=== PATIENT | male | born 1965 | race African-American/Black ===

== ENCOUNTER 2020-10-05 12:18 | Outpatient (CLI) | payer OTHER | END 2020-10-05 12:19 | disposition home or self-care (01) | LOC: SCSMRI 12:18 | PROVIDERS: ATTEND Orthopaedic Surgery | DX: M23.92 Unspecified internal derangement of left knee (principal); S83.242A Other tear of medial meniscus, current injury, left knee, initial encounter ==

== ENCOUNTER 2020-11-16 08:57 | Outpatient (CLI) | payer OTHER ==
[2020-11-16 10:42] LABS: #Eosinphils 0.2 10x3/uL (0.0-0.5); #Monocytes 0.7 10x3/uL (0.0-1.1); #Neutrophils 3.6 10x3/uL (1.5-8.4); %Basophils 0.4 % (0.0-2.0); %Eosinophils 2.4 % (0.0-6.0); %Lymphocytes 32.7 % (18.0-47.0); %Monocytes 9.7 % (0.0-10.0); %Neutrophils 54.7 % (40.0-75.0); Mean Corpuscular HGB CONC 33.7 g/dL (32.0-36.0); Mean Corpuscular Hemoglobin 29.4 pg (27.0-33.0); Mean Corpuscular Volume 87.3 fl (81.2-95.1); Mean Platelet Volume 12.8 fl (7.4-10.4); Platelet Count 180 10x3/uL (150-450); RBC Distribution Width 12.4 % (11.5-14.5); White Blood Cell (WBC) Count 6.7 10x3/uL (3.5-10.5)
[2020-11-16 11:09] LABS: Anion Gap 14 mmol/L (10-20); BUN (Urea Nitrogen) 16 mg/dL (8.4-25.7); Calc. Creatinine Clearance 0 mL/min (70-130); Calcium 9.5 mg/dL (7.8-10.44); Carbon Dioxide 24 mmol/L (22-29); Chloride 106 mmol/L (98-107); Glucose 105 mg/dL (70-105); Potassium 4.1 mmol/L (3.5-5.1); Sodium 140 mmol/L (136-145)
[2020-11-16 19:39] LABS: SARS-CoV-2 PCR by NAA Not Detected (NotDetected)
== END 2020-11-16 08:58 | disposition home or self-care (01) ==
LOC: LABBT 08:57
PROVIDERS: ATTEND Orthopaedic Surgery
DX: Z01.818 Encounter for other preprocedural examination (principal); S83.242A Other tear of medial meniscus, current injury, left knee, initial encounter; Z20.822 Contact with and (suspected) exposure to COVID-19
CPT/HCPCS: 71046; 80048; 85025; 93005; 93010; U0003; U0005

== ENCOUNTER 2020-11-21 07:03 | Day surgery (SDC) | payer OTHER ==
[2020-11-20 11:57] VITALS: BMI 35.2
[2020-11-21] MEDS ORDERED: Bupivacaine 0.25% HCL 30 ML VIAL ONE (07:47)
[2020-11-21] MEDS ORDERED: EPINEPHrine 1 MG/ML AMP ONE (07:47)
[2020-11-21] MEDS ORDERED: Fentanyl 100 MCG/2 ML VIAL ONE ×2 (08:24→08:38)
[2020-11-21] MEDS ORDERED: Midazolam HCl 2 mg/2 ml Vial ONE (08:24)
[2020-11-21] MEDS ORDERED: PROPOFOL 200 MG/20 ML VIAL ONE (08:39)
[2020-11-21] MEDS ORDERED: Lidocaine 2% w/Epinephrine 1:200K 20 ML VIAL ONE (08:39)
[2020-11-21] MEDS ORDERED: Ondansetron PF 4 MG/2 ML Vial ONE (08:39)
[2020-11-21] MEDS ORDERED: Bupivacaine PF 0.5% 30 ML VIAL ONE (08:39)
[2020-11-21] MEDS ORDERED: Dexamethasone 20 MG/5 ML VIAL ONE (08:39)
[2020-11-21] MEDS ORDERED: Lidocaine 1% PF 5 ML VIAL ONE (08:39)
[2020-11-21] MEDS ORDERED: HYDROcodone/Acetaminophen 5/325 mg Tablet ONE (11:09)
== END 2020-11-21 12:35 | disposition home or self-care (01) ==
LOC: SDC 07:03
PROVIDERS: ATTEND Orthopaedic Surgery
PROC: 0SBD4ZZ Excision of Left Knee Joint, Percutaneous Endoscopic Approach (ICD-10-PCS; principal; 2020-11-21)
DX: S83.232A Complex tear of medial meniscus, current injury, left knee, initial encounter (principal); M94.262 Chondromalacia, left knee; S76.112A Strain of left quadriceps muscle, fascia and tendon, initial encounter; X50.1XXA Overexertion from prolonged static or awkward postures, initial encounter
CPT/HCPCS: J0171; J0690; J1100; J2250; J2405; J2704; J3010; S0020

== ENCOUNTER 2021-10-31 10:15 | Outpatient (CLI) | payer OTHER ==
[2021-10-31 11:01] LABS: #Eosinphils 0.1 10x3/uL (0.0-0.5); #Monocytes 0.5 10x3/uL (0.0-1.1); #Neutrophils 2.3 10x3/uL (1.5-8.4); %Basophils 0.6 % (0.0-2.0); %Lymphocytes 41.1 % (18.0-47.0); %Monocytes 9.8 % (0.0-10.0); %Neutrophils 46.1 % (40.0-75.0); Hemoglobin 15.4 g/dL (13.5-17.5); Mean Corpuscular HGB CONC 33.5 g/dL (32.0-36.0); Mean Corpuscular Hemoglobin 29.1 pg (27.0-33.0); Platelet Count 186 10x3/uL (150-450); RBC Distribution Width 12.5 % (11.5-14.5); Red Blood Cell (RBC) Count 5.29 10x6/uL (4.32-5.72)
== END 2021-10-31 10:16 | disposition home or self-care (01) ==
LOC: LABBT 10:15
PROVIDERS: ATTEND Orthopaedic Surgery Hand Surgery
DX: Z01.812 Encounter for preprocedural laboratory examination (principal); M19.032 Primary osteoarthritis, left wrist; Z20.822 Contact with and (suspected) exposure to COVID-19
CPT/HCPCS: 85025; 87811

== ENCOUNTER 2022-01-10 08:47 | Day surgery (SDC) | payer OTHER ==
[2022-01-09 10:40] VITALS: BMI 35.2
[2022-01-10] MEDS ORDERED: Thrombin 5000 UNITS/5 ML VIAL ONE (09:28)
[2022-01-10] MEDS ORDERED: Mineral Oil Sterile 10 ML VIAL ONE (09:28)
[2022-01-10] MEDS ORDERED: Bupivacaine PF 0.5% 30 ML VIAL ONE (09:28)
[2022-01-10] MEDS ORDERED: Bacitracin Zinc Ointment 30 gm TUBE ONE (09:28)
[2022-01-10] MEDS ORDERED: Neomycin-Polymyxin 1 ML AMP ONE ×2 (09:28→09:30)
[2022-01-10] MEDS ORDERED: Sodium Chloride 0.9% 100 ML ONE (10:13)
[2022-01-10] MEDS ORDERED: CEFAZOLIN 2 GM VIAL ONE (10:13)
[2022-01-10] MEDS ORDERED: fentaNYL Citrate/PF 100 MCG/2 ML SYRINGE ONE (10:14)
[2022-01-10] MEDS ORDERED: ePHEDrine 50 MG/ML VIAL ONE (10:20)
[2022-01-10] MEDS ORDERED: PROPOFOL 200 MG/20 ML VIAL ONE (10:20)
[2022-01-10] MEDS ORDERED: Dexamethasone 20 MG/5 ML VIAL ONE (10:20)
[2022-01-10] MEDS ORDERED: Ketorolac Tromethamine 30 MG/ML VIAL ONE (10:20)
[2022-01-10] MEDS ORDERED: Ondansetron PF 4 MG/2 ML Vial ONE (10:20)
== END 2022-01-10 13:05 | disposition home or self-care (01) ==
LOC: SDC 08:47
PROVIDERS: ATTEND Orthopaedic Surgery Hand Surgery
PROC: 0RPP04Z Removal of Internal Fixation Device from Left Wrist Joint, Open Approach (ICD-10-PCS; principal; 2022-01-10)
DX: T84.84XA Pain due to internal orthopedic prosthetic devices, implants and grafts, initial encounter (principal); T84.220A Displacement of internal fixation device of bones of hand and fingers, initial encounter; R23.8 Other skin changes; G56.82 Other specified mononeuropathies of left upper limb; G56.22 Lesion of ulnar nerve, left upper limb; M19.132 Post-traumatic osteoarthritis, left wrist; G90.50 Complex regional pain syndrome I, unspecified; M65.88 Other synovitis and tenosynovitis, other site; Z98.1 Arthrodesis status; Y79.3 Surgical instruments, materials and orthopedic devices (including sutures) associated with adverse incidents
CPT/HCPCS: J1100; J1885; J2405; J2704; J3490; S0020

== ENCOUNTER 2022-04-22 05:59 | Day surgery (SDC) | payer OTHER ==
[2022-04-18 11:25] VITALS: BMI 36.3
[2022-04-22] MEDS ORDERED: Bupivacaine PF 0.5% 30 ML VIAL ONE (06:19)
[2022-04-22] MEDS ORDERED: EPINEPHrine 1 MG/ML AMP ONE (06:19)
[2022-04-22] MEDS ORDERED: Neomycin-Polymyxin 1 ML AMP ONE (06:19)
[2022-04-22] MEDS ORDERED: Bacitracin Zinc Ointment 30 gm TUBE ONE (06:19)
[2022-04-22] MEDS ORDERED: Midazolam HCl 2 mg/2 ml Vial ONE (06:43)
[2022-04-22] MEDS ORDERED: Fentanyl 100 MCG/2 ML VIAL ONE (06:43)
[2022-04-22] MEDS ORDERED: Lidocaine 1% (PF) 30 ML VIAL ONE (06:44)
[2022-04-22] MEDS ORDERED: CEFAZOLIN 2 GM VIAL ONE (07:15)
[2022-04-22] MEDS ORDERED: Sodium Chloride 0.9% 100 ML ONE (07:15)
[2022-04-22] MEDS ORDERED: PROPOFOL 200 MG/20 ML VIAL ONE (07:23)
[2022-04-22] MEDS ORDERED: PHENYLEPHRINE-NS 100 MCG/ML 10 ML SYRINGE ONE (07:23)
[2022-04-22] MEDS ORDERED: ePHEDrine 50 MG/ML VIAL ONE (07:23)
[2022-04-22] MEDS ORDERED: Ondansetron PF 4 MG/2 ML Vial ONE (07:23)
[2022-04-22] MEDS ORDERED: Dexamethasone 20 MG/5 ML VIAL ONE (07:23)
[2022-04-22] MEDS ORDERED: Lidocaine 1% PF 5 ML VIAL ONE (07:23)
[2022-04-22] MEDS ORDERED: Ketorolac Tromethamine 30 MG/ML VIAL ONE ×2 (07:23→09:48)
== END 2022-04-22 11:00 | disposition home or self-care (01) ==
LOC: SDC 05:59
PROVIDERS: ATTEND Orthopaedic Surgery Hand Surgery
PROC: 0RNP0ZZ Release Left Wrist Joint, Open Approach (ICD-10-PCS; principal; 2022-04-22)
PROC: 0LB60ZZ Excision of Left Lower Arm and Wrist Tendon, Open Approach (ICD-10-PCS; principal; 2022-04-22)
PROC: 0RBP4ZZ Excision of Left Wrist Joint, Percutaneous Endoscopic Approach (ICD-10-PCS; principal; 2022-04-22)
DX: M24.532 Contracture, left wrist (principal); M65.88 Other synovitis and tenosynovitis, other site; M24.632 Ankylosis, left wrist; G56.82 Other specified mononeuropathies of left upper limb; G56.22 Lesion of ulnar nerve, left upper limb; M19.132 Post-traumatic osteoarthritis, left wrist; S63.592A Other specified sprain of left wrist, initial encounter; Z79.2 Long term (current) use of antibiotics; Z79.899 Other long term (current) drug therapy; Z98.890 Other specified postprocedural states
CPT/HCPCS: J0171; J1885; J2001; J2250; J3010; J3490; S0020

== ENCOUNTER 2022-10-24 06:35 | Day surgery (SDC) | payer OTHER ==
[2022-10-23 08:55] VITALS: BMI 37.3
[2022-10-24] MEDS ORDERED: Bupivacaine PF 0.5% 30 ML VIAL ONE (08:00)
[2022-10-24] MEDS ORDERED: Bacitracin Zinc Ointment 30 gm TUBE ONE (08:00)
[2022-10-24] MEDS ORDERED: EPINEPHrine 1 MG/ML AMP ONE (08:00)
[2022-10-24] MEDS ORDERED: CEFAZOLIN 2 GM VIAL ONE (08:12)
[2022-10-24] MEDS ORDERED: Sodium Chloride 0.9% 100 ML ONE (08:12)
[2022-10-24] MEDS ORDERED: HYDROmorphone 0.5 MG/0.5 ML SYRINGE ONE (08:15)
[2022-10-24] MEDS ORDERED: Ondansetron PF 4 MG/2 ML Vial ONE ×2 (08:18→08:50)
[2022-10-24] MEDS ORDERED: Dexamethasone 20 MG/5 ML VIAL ONE (08:18)
[2022-10-24] MEDS ORDERED: PROPOFOL 200 MG/20 ML VIAL ONE (08:18)
[2022-10-24] MEDS ORDERED: ePHEDrine Sulfate 50 MG/10 ML VIAL ONE (08:18)
[2022-10-24] MEDS ORDERED: Ketorolac Tromethamine 30 MG/ML VIAL ONE (08:18)
[2022-10-24] MEDS ORDERED: Lidocaine 1% PF 5 ML VIAL ONE (08:18)
[2022-10-24] MEDS ORDERED: Betamet Acet/Betamet Na Ph 30 MG/5 ML VIAL ONE (09:12)
[2022-10-24] MEDS ORDERED: fentaNYL 50 mcg/mL 1 mL Vial ONE (11:00)
[2022-10-24] MEDS ORDERED: HYDROcodone/Acetaminophen 5/325 mg Tablet ONE (11:55)
== END 2022-10-24 12:28 | disposition home or self-care (01) ==
LOC: SDC 06:35
PROVIDERS: ATTEND Orthopaedic Surgery Hand Surgery
PROC: 0RBP0ZZ Excision of Left Wrist Joint, Open Approach (ICD-10-PCS; principal; 2022-10-24)
DX: M19.132 Post-traumatic osteoarthritis, left wrist (principal); M24.50 Contracture, unspecified joint; M65.841 Other synovitis and tenosynovitis, right hand; I10 Essential (primary) hypertension; Z79.899 Other long term (current) drug therapy
CPT/HCPCS: J0171; J0702; J1100; J1170; J1885; J2405; J2704; J3010; J3490; S0020

== ENCOUNTER 2023-01-12 15:09 | Outpatient (CLI) | payer OTHER | END 2023-01-12 15:10 | disposition home or self-care (01) | LOC: SCSRAD 15:09 | PROVIDERS: ATTEND Nurse Practitioner Family | DX: M25.561 Pain in right knee (principal) ==

== ENCOUNTER 2023-05-26 09:35 | Outpatient (CLI) | payer OTHER ==
[2023-05-26 11:23] LABS: #Monocytes 0.4 10x3/uL (0.0-1.1); #Neutrophils 2.8 10x3/uL (1.5-8.4); %Basophils 0.8 % (0.0-2.0); %Eosinophils 0.8 % (0.0-6.0); %Lymphocytes 31.8 % (18.0-47.0); %Monocytes 8.9 % (0.0-10.0); %Neutrophils 57.5 % (40.0-75.0); Hematocrit 40.5 % (38.8-50.0); Hemoglobin 13.4 g/dL (13.5-17.5); Mean Corpuscular HGB CONC 33.1 g/dL (32.0-36.0); Mean Corpuscular Hemoglobin 28.6 pg (27.0-33.0); Mean Corpuscular Volume 86.4 fl (81.2-95.1); Mean Platelet Volume 12.2 fl (7.4-10.4); Platelet Count 307 10x3/uL (150-450); RBC Distribution Width 13.7 % (11.5-14.5); Red Blood Cell (RBC) Count 4.69 10x6/uL (4.32-5.72); White Blood Cell (WBC) Count 4.8 10x3/uL (3.5-10.5)
== END 2023-05-26 09:36 | disposition home or self-care (01) ==
LOC: LABBT 09:35
PROVIDERS: ATTEND Orthopaedic Surgery Hand Surgery
DX: Z01.818 Encounter for other preprocedural examination (principal); G56.02 Carpal tunnel syndrome, left upper limb
CPT/HCPCS: 85025; 93005; 93010

== ENCOUNTER 2023-08-28 06:20 | Day surgery (SDC) | payer OTHER ==
[2023-08-26 09:22] VITALS: BMI 34.1
[2023-08-28] MEDS ORDERED: PROPOFOL 20 ML ONE (07:30)
[2023-08-28] MEDS ORDERED: Midazolam HCl 2 mg/2 ml Vial ONE (07:30)
[2023-08-28] MEDS ORDERED: fentaNYL PF 100 MCG/2 ML SYRINGE ONE (07:30)
[2023-08-28] MEDS ORDERED: Bupivacaine PF 0.5% 30 ML VIAL ONE (07:38)
[2023-08-28] MEDS ORDERED: Bacitracin Zinc Ointment 30 gm TUBE ONE (07:38)
[2023-08-28] MEDS ORDERED: Sodium Chloride 0.9% 100 ML ONE (07:58)
[2023-08-28] MEDS ORDERED: CEFAZOLIN 2 GM VIAL ONE (07:58)
[2023-08-28] MEDS ORDERED: Dexamethasone 20 MG/5 ML VIAL ONE (09:00)
[2023-08-28] MEDS ORDERED: Lidocaine 1% PF 5 ML VIAL ONE (09:00)
[2023-08-28] MEDS ORDERED: Ketorolac Tromethamine 30 MG (1 mL) VIAL ONE ×2 (09:00→09:49)
[2023-08-28] MEDS ORDERED: Ondansetron PF 4 MG/2 ML Vial ONE (09:00)
== END 2023-08-28 12:20 | disposition home or self-care (01) ==
LOC: SDC 06:20
PROVIDERS: ATTEND Orthopaedic Surgery Hand Surgery
PROC: 0PBL0ZZ Excision of Left Ulna, Open Approach (ICD-10-PCS; principal; 2023-08-28)
PROC: 0MB40ZZ Excision of Left Elbow Bursa and Ligament, Open Approach (ICD-10-PCS; principal; 2023-08-28)
DX: M70.22 Olecranon bursitis, left elbow (principal); M25.722 Osteophyte, left elbow
CPT/HCPCS: 88304; 88311; A6223; J0665; J1100; J1885; J2250; J2405; J2704; J3490